=== PATIENT | female | born 1965 | race Caucasian/White ===

== ENCOUNTER 2020-12-13 06:03 | Day surgery (SDC) | payer BC ==
[~2020-12-13] VITALS: Ht 165.1 cm; Wt 111.4 kg
[2020-12-13] MEDS ORDERED: SODIUM CHLORIDE 0.9% 1,000 ML IV SCH (06:30)
[2020-12-13 06:35] VITALS: BP 122/74
[2020-12-13] MEDS ORDERED: METO25TA91 PO (06:35)
[2020-12-13] MEDS ORDERED: CHOL10003 PO (06:35)
[2020-12-13] MEDS ORDERED: MAGN400T36 PO (06:35)
[2020-12-13] MEDS ORDERED: MULT-658 PO (06:35)
[2020-12-13] MEDS ORDERED: ASCO100018 PO (06:35)
[2020-12-13] MEDS ORDERED: C,E,1CAP PO (06:35)
[2020-12-13] MEDS ORDERED: Cranberry PO (06:48)
[2020-12-13] MEDS ORDERED: MIDAZOLAM 1 MG/ML, 2ML ONE ×2 (07:27→09:17)
[2020-12-13] MEDS ORDERED: LIDOCAINE 1%, 20ML ONE (07:28)
[2020-12-13] MEDS ORDERED: ADENOSINE 6 MG/2 ML ONE (07:28)
[2020-12-13] MEDS ORDERED: FENTANYL PF 100 MCG/2ML ONE (07:28)
[2020-12-13] MEDS ORDERED: ISOPROTERENOL 0.2MG/ML, 5ML ONE (07:28)
[2020-12-14] MEDS ORDERED: MAGNESIUM OXIDE 400 MG TABLET PO SCH (09:00)
[2020-12-14] MEDS ORDERED: MULTIVITAMIN 1 TABLET PO SCH (09:00)
[2020-12-14] MEDS ORDERED: CHOLECALCIFEROL 1,000 UNIT TABLET PO SCH (09:00)
[2020-12-14] MEDS ORDERED: ASCORBIC ACID 500 MG TABLET PO SCH (09:00)
== END 2020-12-13 10:17 | disposition home or self-care (01) ==
LOC: CACL 06:03 → EDBD 08:00 → CACL 10:17
PROVIDERS: ATTEND Internal Medicine Cardiovascular Disease
DX: I47.1 Supraventricular tachycardia (principal); E66.9 Obesity, unspecified; Z68.41 Body mass index [BMI] 40.0-44.9, adult; Z79.899 Other long term (current) drug therapy; Z87.891 Personal history of nicotine dependence; Z88.2 Allergy status to sulfonamides
CPT/HCPCS: 71046; 93005; 93613; 93621; 93623; 93653; 99156; 99157; C1730; C1766; C1894; C2630; J2250; J3010; J0153